=== PATIENT | male | born 1985 | race Caucasian/White ===

== ENCOUNTER 2020-12-29 01:37 | Emergency (ER) | payer OTHER ==
[2020-12-29] MEDS ORDERED: DEBROX15 ML AU (04:04)
[2020-12-29] MEDS ORDERED: AMOXICILLIN500 MG PO (04:04)
== END 2020-12-29 04:05 | disposition home or self-care (01) ==
LOC: FER 01:37
DX: H66.92 Otitis media, unspecified, left ear (principal); H61.23 Impacted cerumen, bilateral; J02.9 Acute pharyngitis, unspecified; J45.909 Unspecified asthma, uncomplicated; F17.200 Nicotine dependence, unspecified, uncomplicated
CPT/HCPCS: 87880; 99283